=== PATIENT | female | born 1990 | race Hispanic/Latino ===

== ENCOUNTER 2019-05-12 06:37 | Day surgery (SDC) | payer OTHER, BC ==
[2019-05-12 07:51] LABS: Blood Urea Nitrogen 13 mg/dL (7-17)
[2019-05-12] MEDS ORDERED: METOPROLOL TARTRATE 50 MG TAB PO ONE (08:30)
[2019-05-12] MEDS ORDERED: METOPROLOL TARTRATE 50 MG TAB ONE (08:34)
[2019-05-12] MEDS ORDERED: METOPROLOL TARTRATE 5 MG/5 ML INJ IV NR (08:56)
[2019-05-12] MEDS ORDERED: NITROGLYCERIN 0.4 MG TAB SUBL SL NR (08:56)
[2019-05-12] MEDS ORDERED: ATROPINE 0.1% (1 MG/10 ML) CARDIAC SYRINGE IV NR (08:57)
[2019-05-12] MEDS ORDERED: ATROPINE 0.1% (1 MG/10 ML) CARDIAC SYRINGE ONE (09:01)
[2019-05-12 09:36] VITALS: BP 93/47
--- NOTE | 2019-05-12 10:37 | Cat Scan Report ---
LIMITED CTA CHEST HISTORY: Chest pain. INDICATION: Limited evaluation of the chest associated with cardiac CTA exam. TECHNIQUE: Arterial phase technique utilized to evaluate the carotid arteries. Please refer to the of ficial cardiac CTA report for contrast details. All CT scans at this location are performed using CT dose reduction for ALARA by means of automated exposure control. FINDINGS: No pathologic adenopathy. Visualized lungs are clear. There are degenerative changes in the spine with no acute osseous abnormality. Limited imaging through the upper abdomen shows nothing acute. IMPRESSION: No significant incidental finding. Signer Name: Everton Maria Jr, MD Signed: 05/12/2019 10:33 AM Workstation Name: [id number]
--- NOTE | 2019-05-17 08:50 | CT Calcium Scoring Report ---
Coronary Calcium Score Date of service: 05/17/19 Procedure: High-resolution computed tomographic imaging of the chest was performed on05/12/19 with particular attention paid to the coronary arteries. Images from the examination were analyzed for the presence and extent of coronary artery calcification, using coronary calcium quantification software. The patient tolerated the procedure well and there were no complications. The results of the coronary calcification analysis are provided below. The patient scores are compared with published data related to scores for people of a similar age and the same gender. - Findings Total Agatson Score: 0 Findings: Cardiac CTA Indication: chest pain Informed consent: obtained The patient was brought to the cardiac ct laboratory at [facility] in stable condition after a 4 hour fast. Heart rate was regulated by beta blockade. Sublingual ngt was administered. A coronary calcium score was performed via the Agatston method. Left ventricular function was assessed by the threshold based volumetric segmentation approach. A separate radiology assessment of the non cardiac structures in the field of view will be provided Left ventriculography: left ventricular ejection fraction 65%, normal wall motion Non coronary cardivascular findings: normal visualized ascending and descending aorta normal visualized superior and inferior vena cava normal visualized pulmonary artery normal entry of pulmonary veins into the left atrium normal cardiac chamber dimensions normal mitral and aortic valves normal interventricular seputm normal interatrial seputm normal left atrial appendage Coronary angiography: dominant right coronary artery normal coronary origins left main: normal left anterior descending: normal circumflex: normal right coronary: normal The procedure was tolerated well; there were no procedural complications
== END 2019-05-12 09:32 | disposition home or self-care (01) ==
LOC: CATHLABREC 06:37 → EDSTATUS 07:45 → CATHLABREC 09:32
PROVIDERS: ATTEND Internal Medicine Cardiovascular Disease
DX: R07.9 Chest pain, unspecified (principal); R00.2 Palpitations; J45.909 Unspecified asthma, uncomplicated; M47.899 Other spondylosis, site unspecified; Z88.5 Allergy status to narcotic agent; Z91.013 Allergy to seafood; Z79.899 Other long term (current) drug therapy; Z88.8 Allergy status to other drugs, medicaments and biological substances
CPT/HCPCS: 36415; 75574; 82565; 84520; Q9967; J0461